=== PATIENT | female | born 1985 | race Asian ===

== ENCOUNTER → 2023-12-29 | Outpatient (CLI) | payer OTHER, SELFPAY ==
[2023-12-29 12:19] LABS: Absolute Lymphocyte Count 1.87 X10^3/uL (0.83-4.51); Absolute Neutrophil Count 3.9 X10^3/uL (2.0-7.7); Basophil# 0.05 X10^3/uL; Basophil% 0.8 % (0-1); Eosinophils% 1.6 % (0-5); Hematocrit 38.2 % (37-47); Hemoglobin 12.1 g/dL (12.0-15.0); Lymphocyte # 1.87 X10^3/ul (0.83-4.51); Mean Corp Hgb Conc 31.7 g/dL (32-36); Mean Corpuscular Volume 94.6 fL (81-99); Mean Platelet Vol. 10.7 fl (6.2-12.0); Monocyte# 0.45 X10^3/uL; NRBC Flagged by Analyzer 0 % (0-5); Neutrophil # 3.94 X10^3/uL (2.7-7.7); Neutrophil % 61.1 % (47-70); Platelet Count 296 K/mm3 (150-450); RBC Distribution Width CV 12.6 % (11.6-14.6); RBC Distribution Width SD 43.7 fl (35.1-43.9); Red Blood Count 4.04 M/mm3 (4.2-5.4); White Blood Count 6.4 K/mm3 (4.4-11.0)
[2023-12-29 13:05] LABS: Anion Gap 5 (5-15); BUN 13 mg/dL (7-18); BUN/Creat Ratio 17.4 RATIO (10-20); Calcium,Total 8.6 mg/dL (8.5-10.1); Chloride 108 mmol/L (98-107); Creatinine, Serum 0.75 mg/dL (0.55-1.02); EST Glomerular Filtration Rate 92 mL/min (>60); Est Glom Filt Rate - Afr Amer 111 mL/min (>60); Glucose 89 mg/dL (74-106); Potassium 4.2 mmol/L (3.5-5.1); Sodium Level 140 mmol/L (136-145); Thyroid Stim Hormone (TSH) 1.56 uIU/mL (0.358-3.74)
== END | disposition home or self-care (01) ==
PROVIDERS: PCP Nurse Practitioner Family; Referring Provider Nurse Practitioner Family; Visit Provider Nurse Practitioner Family
DX: R59.0 Localized enlarged lymph nodes (principal)
CPT/HCPCS: 36415; 80048; 84443; 85025

== ENCOUNTER → 2024-04-27 | Outpatient (CLI) | payer OTHER, SELFPAY ==
--- NOTE | 2024-04-27 10:31 | RAD_ITS ---
STUDY: X-RAY - CERVICAL SPINE REASON FOR EXAM: Female, 38 years old. CERVICALGIA TECHNIQUE: 6 view(s) of the cervical spine were obtained including oblique views. COMPARISON: None FINDINGS: Normal anterior atlantoaxial articulation. Normal odontoid process. There is straightening of the normal cervical lordosis. Normal vertebral bodies and endplates. Normal disc space heights. Normal visualized intervertebral neuroforamina. The soft tissue structures are unremarkable. RAD/Cerv Spine 4 or 5 Views IMPRESSION: There is straightening of the normal cervical lordosis. This may be related to muscle spasm. Electronically Signed: Humza Zapata MD at 14:01 EST ,
== END | disposition home or self-care (01) ==
PROVIDERS: PCP Nurse Practitioner Family; Referring Provider Nurse Practitioner Family; Visit Provider Nurse Practitioner Family
DX: M54.2 Cervicalgia (principal)
CPT/HCPCS: 72050

== ENCOUNTER → 2024-05-11 | Outpatient (CLI) | payer OTHER, SELFPAY ==
--- NOTE | 2024-05-11 10:35 | RAD_ITS ---
STUDY: X-RAY - MANDIBLE (COMPLETE) REASON FOR EXAM: Female, 38 years old. DISEASE OF JAW TECHNIQUE: 5 view(s) of the mandible were obtained. COMPARISON: None. FINDINGS: Normal mandible. Normal visualized right temporomandibular joint. Normal visualized left temporomandibular joint. The remaining visualized osseous structures are normal. The soft tissue structures are unremarkable. RAD/Mandible Min 4 Views IMPRESSION: Normal x-ray examination of the mandible. Electronically Signed: Jose Bailey MD at 11:35 EST ,
== END | disposition home or self-care (01) ==
LOC: RAD 10:25
PROVIDERS: PCP Nurse Practitioner Family; Referring Provider Family Medicine; Visit Provider Family Medicine
DX: M27.8 Other specified diseases of jaws (principal)
CPT/HCPCS: 70110

== ENCOUNTER → 2024-05-12 | Outpatient (CLI) | payer OTHER, SELFPAY ==
--- NOTE | 2024-05-12 13:39 | NEURO ---
NCS and/or EMG Patient Report Ordering Doctor: Love Diaz [facility] DATE OF SERVICE: 05/12/24 Thi presents electrodiagnostic testing of the upper limbs. She reports numbness and tingling in both hands, worse on the right side. Electrodiagnostic findings: Median motor nerve demonstrates normal distal latency, amplitude and conduction velocity. Left median motor nerve demonstrates normal distal latency, amplitude and conduction velocity. Ulnar motor response is normal bilaterally. Normal median and ulnar F waves. Borderline prolonged right median sensory latency at the wrist. Normal left median sensory latency at the wrist. Normal ulnar and radial sensory responses. Needle EMG testing was performed upper limbs. All muscles tested showed no evidence of denervation with normal motor unit action potentials. Electrodiagnostic impression: This is an abnormal study in the upper limbs 1. Electrodiagnostic findings suggestive of right-sided median mononeuropathy. This is consistent with a mild right carpal tunnel syndrome Multi Select Codes Neurology Neurology Interp Codes: 25604-28 Musc test done w/n test comp (interp) (2) and 87817-55 Nr cndj test 13/> studies (interp)
== END | disposition home or self-care (01) ==
PROVIDERS: PCP Nurse Practitioner Family; Referring Provider Nurse Practitioner Family; Visit Provider Nurse Practitioner Family
DX: R20.2 Paresthesia of skin (principal)
CPT/HCPCS: 95886; 95913